=== PATIENT | male | born 1980 | race Hispanic/Latino ===

== ENCOUNTER 2020-06-29 12:18 | Emergency (ER) | payer SELFPAY ==
[~2020-06-29] VITALS: Ht 162.6 cm; Wt 86.2 kg
[2020-06-29] MEDS ORDERED: DIAZEPAM 5 MG TAB PO PRN (12:45)
[2020-06-29] MEDS ORDERED: METHYLPREDNISOLONE SOD SUCC 125 MG/2ML VIAL IM ONE (12:45)
[2020-06-29] MEDS ORDERED: KETOROLAC TROMETHAMINE 60 MG/2 ML VIAL IM ONE (12:45)
[2020-06-29] MEDS ORDERED: NAPROXEN250 MG PO (14:21)
[2020-06-29] MEDS ORDERED: NEURONTIN100 MG PO (14:21)
[2020-06-29] MEDS ORDERED: ROBAXIN-750750 MG PO (14:21)
[2020-06-29 14:30] VITALS: BP 113/87
== END 2020-06-29 14:39 | disposition home or self-care (01) ==
LOC: ER 12:20
DX: M54.42 Lumbago with sciatica, left side (principal)
CPT/HCPCS: 72110; 73502; 99283; J1885; J2930